=== PATIENT | female | born 1990 | race Hispanic/Latino ===

== ENCOUNTER 2018-09-19 19:22 | Inpatient (IN) | payer OTHER ==
[2018-09-19 19:51] VITALS: BMI 28.1
[2018-09-19] MEDS ORDERED: Lactated Ringer's 1,000 ML IV ONE (20:27)
[2018-09-19] MEDS ORDERED: Oxytocin 30 UNIT in NS 500 ml 30 UNITS/500 ML BAG IV ONE (20:29)
[2018-09-19] MEDS ORDERED: OXYTOCIN/0.9 % NS 20 UNIT/1,000 ML BAG IV SCH (20:30)
[2018-09-19] MEDS ORDERED: Lactated Ringer's 1,000 ML IV SCH (20:30)
[2018-09-19 21:58] LABS: BASO # 0.1 K/uL (0.0-0.2); BASO % 0.5 % (0.0-2.0); EOS # 0.2 K/uL (0.0-0.7); EOS % 1.9 % (0.0-4.0); HEMOGLOBIN 12.1 g/dL (12.0-16.0); LYMPH # 1.8 K/uL (1.0-4.3); LYMPH % 17.6 % (20.0-40.0); MEAN CELL VOLUME 90.4 fl (81.0-99.0); MEAN CORPUSCULAR HEMOGLOBIN 31.4 pg (27.0-31.0); MEAN CORPUSCULAR HGB CONC 34.7 g/dL (33.0-37.0); MEAN PLATELET VOLUME 8.6 fl (7.2-11.7); MONO # 0.7 K/uL (0.0-0.8); MONO % 6.5 % (0.0-10.0); NEUT # 7.6 K/uL (1.8-7.0); NEUT % 73.5 % (50.0-75.0); RBC 3.86 Mil/uL (3.80-5.20); RED CELL DISTRIBUTION WIDTH 13.7 % (11.5-14.5); WHITE BLOOD COUNT 10.4 K/uL (4.8-10.8)
[2018-09-19 22:25] LABS: BARBITURATES, UR NEGATIVE (NEGATIVE); BENZODIAZEPINES, UR NEGATIVE (NEGATIVE); OPIATES, UR NEGATIVE (NEGATIVE); PHENCYCLIDINE, UR NEGATIVE (NEGATIVE)
[2018-09-20] MEDS ORDERED: Oxytocin 30 UNIT in NS 500 ml 30 UNITS/500 ML BAG IV ONE ×4 (10:58→20:00)
[2018-09-20] MEDS ORDERED: Lactated Ringer's 1,000 ML IV SCH (11:45)
--- NOTE | 2018-09-20 15:34 | OBPN ---
Datetime: 09/20/2018 15:30 IP Progress Impression: Normal progression of labor; Reassuring heart rate IP Procedures: Sterile Vag Exam IP Progress Plan: Continue present management; Induction Membranes, Provider: Intact FHR - Baseline A Provider: 140s Gestation - Est Wks by US: 41.0 Presentation-Admit: Vertex IP Progress Note Comment: Continue monitoring NICHD Accel Fetus A IP Provider: 15X15 FHR Category Provider Fetus A: Category I NICHD Variability Prov Fetus A: Moderate 6-25bpm Dilatation, Provider: 0 Effacement, Provider: 70 Station, Provider: -3 NICHD Decel Fetus A IP Provider: None
[2018-09-20] MEDS ORDERED: Clindamycin 600mg/50ml NS 600 MG/50 ML BAG IVPB ONE (16:55)
--- NOTE | 2018-09-20 17:29 | OBPN ---
Datetime: 09/20/2018 16:17 IP Progress Note Comment: Cqalled to see patient who reports that she thinks that the induction of l abor would not work and requests delivery. The cervidil which was started @ 11pm last night was taken off and was switched onto pitocin for IOL. Patient reports that she does not think her body or baby is tolerating the IOL and therefore asked the nurse to turn off the pitocin. Further management was discussed at her bedside. Patient refuses to go with the other options but to have section. The risks, alternatives and benefits of section were discussed. Questions from patient were discussed. Patient would proceed to have the section done despite the discussion. Consents for the procedure were given to the patient and obtained.
[2018-09-20] MEDS: Lactated Ringer's 1,000 ML IV ONE ×2 (17:37→18:40)
[2018-09-20] MEDS ORDERED: ePHEDrine 50 mg/ml Inj ONE (19:15)
[2018-09-20] MEDS ORDERED: Morphine 5 mg/10 ml preservative-free Inj(Duramorph) ONE (19:17)
[2018-09-20] MEDS ORDERED: Dexamethasone 4 mg/1 ml ONE (20:30)
[2018-09-20] MEDS ORDERED: Oxycodone/Acetaminophen 5/325 mg Tab PO PRN (20:59)
[2018-09-20] MEDS ORDERED: DiphenhydrAMINE 50 mg/ml Inj IVP PRN (20:59)
--- NOTE | 2018-09-20 21:05 | PCM.SURG1 ---
Surgeon's Initial Post Op Note - Surgeon's Notes Surgeon: Dr Chavez Offset Plate Preparation Supervisor: Vale Richardson Type of Anesthesia: Spinal Anesthesia Administered By: Dr Tran Pre-Operative Diagnosis: IUP at 41weeks, failure of induction of labor. Maternal request for delivery Operative Findings: Live male with BW of 8 Ibs and scores of 9 and 9. Delivered in cephalic presentation in the LOT positioning and fundal placenta. Normal uterus,fallopian tubes and ovaries. IVFluid Intake- 1500mls. EBL- 600mls. Urine Output- 100mls Post-Operative Diagnosis: Same as preop Diagnosis Operation Performed: Primary Low Transverse Section Specimen/Specimens Removed: None Estimated Blood Loss: EBL {In ML}: 600 Blood Products Given: N/A Post-Op Condition: Good Date of Surgery/Procedure: 09/20/18 Time of Surgery/Procedure: 21:09
[2018-09-21] MEDS ORDERED: DiphenhydrAMINE 50 mg/ml Inj IVP PRN (00:54)
--- NOTE | 2018-09-21 04:59 | OP ---
PROCEDURE DATE: 09/20/2018 PREOPERATIVE DIAGNOSIS: Intrauterine at 41 weeks, attempted induction of labor with lack of progression, maternal request for section. POSTOPERATIVE DIAGNOSIS: Intrauterine at 41 weeks, attempted induction of labor with lack of progression, maternal request for section. PROCEDURE: Primary low transverse section performed on 09/20/2018. SURGEON: Jovanny Chavez MD AQUATIC INSTRUCTOR: Dr. Vale Richardson, [facility] OB fellow. Assistance for this procedure was needed for exposure of tissues and help in the delivery of the baby. The assistant professor of german remained with the surgery throughout its entire length. TYPE OF ANESTHESIA: Spinal. ANESTHESIA ADMINISTERED BY: Dr. Tran. FINDINGS: A live male with weight of 8 pounds. scores of 9 in the first and fifth minutes respectively. Delivered in the cephalic presentation in the left occipital transverse positioning. The placenta was fundal and amniotic fluid was clear. The uterus as well as both ovaries and fallopian tubes were normal. ESTIMATED BLOOD LOSS: 600 mL. INTRAVENOUS FLUID INTAKE: 1500 mL. URINE OUTPUT: 100 mL of clear urine. DESCRIPTION OF PROCEDURE: After obtaining informed consent, the patient was sent to the OR with IV running and Moran catheter in place. The patient was sat on the OR table and after adequate spinal anesthesia, was put in a supine position with a left lateral tilt. The patient was then prepped and draped in the usual sterile fashion. A Pfannenstiel skin incision was made using the scalpel and this was continued with a Bovie device through the subcutaneous tissues until the rectus fascia was identified. A transverse incision was made in the rectus fascia and this incision was extended to both sides by means of blunt dissection. The rectus fascia was lifted off the underlying rectus muscles both superiorly and inferiorly by means of blunt dissection and sharp dissection with Loja scissors. The rectus muscles were in the midline to expose the peritoneum which was carefully entered using Metzenbaum scissors and with good visualization of the bladder. Once the abdominal cavity was entered, the vesicouterine fold of the peritoneum was identified. It was incised in a transverse fashion and retracted inferiorly to expose the lower uterine segment. Using the scalpel, a transverse lower uterine segment incision was made. This incision was sent through the myometrial fibers so that the amniotic membranes were identified. The incision was extended on both sides using a blunt incision. Once the intrauterine cavity was entered, the baby which was in left occipital transverse positioning was delivered. Baby cried immediately after . Both mouth and nostrils were bulb suctioned. The three vessel cord was clamped and cut, and the baby was handed over to the team. Umbilical cord blood was obtained and the placenta was manually removed from the intrauterine cavity. The uterus was then brought out of the abdominal cavity and uterine cavity cleaned of all debris using dry laparotomy pads. The uterine incision was then closed in two layers, the first layer in a running locked fashion and the second layer in a running fashion and imbricating the second layer. This was done until hemostasis was noted. Irrigation of both the anterior and posterior regions of the uterus was undertaken and clots that were identified were removed. Once hemostasis was noted, the uterus was retained into the abdominal cavity after removing all laparotomy pads. Attention was then turned over on to the anterior abdominal wall, which was closed in layers with 2-0 Vicryl for the peritoneum and the rectus muscles. The rectus fascia was re-approximated using Vicryl #0. The subcutaneous tissue was brought together by means of #2-0 plain catgut. The skin was closed in the subcuticular fashion using #4-0 Vicryl. All counts of instruments, laparotomy pads, and needles used were correct x3. The patient was sent to the recovery room awake and in stable condition. There were no complications. Jovanny Chavez MD MTDD
[2018-09-21] MEDS ORDERED: oxyCODONE 5 mg Immediate Release Tab PO PRN (05:02)
[2018-09-21] MEDS: Oxycodone/Acetaminophen 5/325 mg Tab PO PRN ×3 (05:21→17:43)
[2018-09-21 06:14] LABS: BASO # 0.1 K/uL (0.0-0.2); BASO % 0.3 % (0.0-2.0); HEMOGLOBIN 11.2 g/dL (12.0-16.0); LYMPH % 5.9 % (20.0-40.0); MEAN CELL VOLUME 92.9 fl (81.0-99.0); MEAN CORPUSCULAR HEMOGLOBIN 31.5 pg (27.0-31.0); MEAN CORPUSCULAR HGB CONC 33.9 g/dL (33.0-37.0); MEAN PLATELET VOLUME 9.2 fl (7.2-11.7); MONO # 0.8 K/uL (0.0-0.8); NEUT # 15.2 K/uL (1.8-7.0); NEUT % 88.8 % (50.0-75.0); PLATELET COUNT 212 K/uL (130-400); RBC 3.57 Mil/uL (3.80-5.20); RED CELL DISTRIBUTION WIDTH 13.4 % (11.5-14.5); WHITE BLOOD COUNT 17.1 K/uL (4.8-10.8)
--- NOTE | 2018-09-21 08:42 | OBHP ---
Datetime: 09/20/2018 15:30 Presentation-Admit: Vertex FHR - Baseline A Provider: 140s Membranes, Provider: Intact Gestation - Est Wks by US: 41.0 NICHD Variability Prov Fetus A: Moderate 6-25bpm NICHD Accel Fetus A IP Provider: 15X15 FHR Category Provider Fetus A: Category I NICHD Decel Fetus A IP Provider: None Dilatation, Provider: 0 Effacement, Provider: 70 Station, Provider: -3 Datetime: 09/19/2018 21:09 IP Adm Impression: Term, intrauterine IP Admit Plan: Admit to unit; Initiate labor induction protocol Admit Comment, IP Provider: 27 yo F 40.6 wk present to L_D for scheduled induction of labor, due to post-term. otherwise patient have no complains, denies contraction vag bleeding, or discharge . Patient denies any complication during . PCP: Dr. Mijares Allergy amox MED PNV PMH HSV2 untreated PFH Grandmother with breast cancer PSH none Social Patient denies smoke drink or drug use, but she had a + Cannabis in urine on first trimeste r Assessment and plan 27 yo F 40.6 wk present to L_D for scheduled induction of labor, due to post-term. Patient to be Admitted to L_D Cervix closed long posterior Monitor vitals Monitor strip CBC type and screen stat IV fluid NPO Cervidel Vag Pit for after placenta delivery. Katty PGY1 Case discussed with Dr Chavez Attending Note: patient was seen and examined with the resident and I agree with the above assessm ent; Pelvic Type - PN: Adequate Extremities - PN: Normal Abdomen - PN: Normal Back - PN: Normal Breast - PN: Not Done Lungs - PN: Normal Heart - PN: Normal Thyroid - PN: Normal Neurologic - PN: Normal HEENT - PN: Normal General - PN: Normal Comments, ACOG Physical Exam: Heart no extra heard sound lung clear abd nontedner BS+ Cervix closed long posterior EGA AdmitDate IP: 40.6 Vital Signs Provider: Reviewed; Within Normal Limits IP Chief Complaint: Uterine contractions Genitourinary Exam: Normal DTRs - PN: Normal
--- NOTE | 2018-09-21 08:49 | OBPPN ---
Datetime: 09/21/2018 08:42 PP Pain Prov: Within normal limits PP Nausea Prov: Denies PP Flatus Prov: Yes PP Breasts Prov: Normal PP Heart Prov: Normal PP Lungs Prov: Normal PP Abdomen/Uterus Prov: Normal PP Lochia Prov: Normal PP Vulva/Perineum Prov: Normal PP CVA Tenderness Prov: Normal PP Extremities Prov: Normal PP Progress Prov: Normal PP Comments Phys Exam Prov: Abd; Soft, NT, BS- presnt UT- Firm Incision: Clean and Dry PP Impression Prov: Normal progression PP Plan Prov: Continue present management PP Progress Note Prov: S/P Primary Delivery, POD #1 Clinically Stable. Plan: Continue care.
[2018-09-21 09:19] LABS: LYMPHOCYTE 8 % (20-50); MONOCYTE 4 % (0-10); NEUTROPHIL 88 % (42-75); PLATELET ESTIMATE NORMAL (NORMAL); TOTAL CELLS COUNTED 100
[2018-09-21 09:20] LABS: ANISOCYTOSIS SLIGHT; LARGE PLATELETS PRESENT; OVALOCYTES SLIGHT
[2018-09-22] MEDS ORDERED: Oxycodone/Acetaminophen 5/325 mg Tab PO PRN ×2 (08:08→08:09)
--- NOTE | 2018-09-22 10:15 | OBPPN ---
Datetime: 09/22/2018 10:10 PP Pain Prov: Within normal limits PP Nausea Prov: Denies PP Flatus Prov: Yes PP Breasts Prov: Normal PP Heart Prov: Normal PP Lungs Prov: Normal PP Abdomen/Uterus Prov: Normal PP Lochia Prov: Normal PP Vulva/Perineum Prov: Normal PP CVA Tenderness Prov: Normal PP Extremities Prov: Normal PP Comments Phys Exam Prov: FUndus firm under umbilicus Incision clean/dry/intact PP Impression Prov: Normal progression PP Plan Prov: Continue present management PP Progress Note Prov: Patient denies CP, no SOB, no N/V, tolerating PO diet, ambulating/voiding wel l, mild lochia, abdominal pain tolerable with meds, +flatus A/P POD #2 1. Continue post-op orders 2. Encourage ambulation/ 3. Percocet/Motrin prn pain IP PP Procedures: None Vital Signs Provider PP: Reviewed; Within Normal Limits
--- NOTE | 2018-09-23 09:14 | OBPPN ---
Datetime: 09/23/2018 09:09 PP Pain Prov: Within normal limits PP Nausea Prov: Denies PP Flatus Prov: Yes PP Breasts Prov: Not Done PP Heart Prov: Normal PP Lungs Prov: Normal PP Abdomen/Uterus Prov: Normal PP Lochia Prov: Not Done PP Vulva/Perineum Prov: Not Done PP CVA Tenderness Prov: Normal PP Extremities Prov: Normal PP C/S Incision Prov: Normal PP Impression Prov: Normal progression PP Plan Prov: Discharge PP Progress Note Prov: Postop day #3 Patient doing well ambulating tolerating diet pain well controlled Vital signs stable afebrile Uterus firm below the umbilicus Incision clean dry intact Extremities no Homans Patient cleared for discharge Follow-up with PMD in 1 week Nothing per vagina Vital Signs Provider PP: Reviewed
--- NOTE | 2018-09-23 09:14 | OBDCSUM ---
Datetime: 09/23/2018 09:11 Discharged to, Provider: Home Follow up at, Provider: PMD Disch Instr Activity: Normal activity Disch Instr Diet: Regular Discharge Instructions, Provider: Routine instructions given Discharge Diagnosis, Provider: Term Delivered Follow up in weeks, Provider: 1 week Disch Referrals: None Contraception discussed, Prov: Yes Disch Activity Restrictions: No sexual activity; Nothing in vagina - [place], tampons, douche Discharge Comment, Provider: Nothing per vagina no heavy lifting prescriptions provided Contraception after Delivery: Undecided
[2018-09-23 21:22] VITALS: BP 127/59; PULSE 74; RESP 20; TEMP 98.7; O2SAT 99
== END 2018-09-23 15:06 | disposition home or self-care (01) | DRG 371 ==
LOC: H.L&D 20:27 → H.OB/GYN 09-21 00:15
PROVIDERS: ADMIT Obstetrics & Gynecology; ATTEND Obstetrics & Gynecology
PROC: 4A1HXCZ Monitoring of Products of Conception, Cardiac Rate, External Approach (ICD-10-PCS; 2018-09-19)
PROC: 10D00Z1 Extraction of Products of Conception, Low, Open Approach (ICD-10-PCS; principal; 2018-09-20)
DX: O48.0 Post-term pregnancy (principal); O61.8 Other failed induction of labor; Z37.0 Single live birth; Z3A.41 41 weeks gestation of pregnancy; O69.81X0 Labor and delivery complicated by cord around neck, without compression, not applicable or unspecified